=== PATIENT | male | born 2000 | race Two or more races ===

== ENCOUNTER 2022-02-25 22:17 | Emergency (ER) | payer OTHER ==
[~2022-02-25] VITALS: Ht 175.3 cm; Wt 52.2 kg
[2022-02-25] MEDS ORDERED: SYNTHROID50 MCG PO (23:13)
[2022-02-25] MEDS ORDERED: TYLENOL ARTHRI650 MG PO (23:13)
[2022-02-25] MEDS ORDERED: ZOLOFT25 MG PO (23:14)
[2022-02-26] MEDS ORDERED: TUSNEL LIQUID178 ML PO (03:02)
[2022-02-26] MEDS ORDERED: MAXITROL EYE DRO5 ML OP (03:02)
[2022-02-26] MEDS ORDERED: ZITHROMAX500 MG PO (03:02)
== END 2022-02-26 03:18 | disposition home or self-care (01) ==
LOC: EMR PED 22:17
DX: J06.9 Acute upper respiratory infection, unspecified (principal); H10.12 Acute atopic conjunctivitis, left eye; Z20.822 Contact with and (suspected) exposure to COVID-19

== ENCOUNTER 2022-09-13 11:35 | Emergency (ER) | payer OTHER ==
[~2022-09-13] VITALS: Ht 172.7 cm; Wt 52.2 kg
[~2022-09-13 11:35] MED LIST: MAXITROL EYE DRO5 ML OP; SYNTHROID50 MCG PO; TUSNEL LIQUID178 ML PO; TYLENOL ARTHRI650 MG PO; ZITHROMAX500 MG PO; ZOLOFT25 MG PO
== END 2022-09-13 14:35 | disposition home or self-care (01) ==
LOC: EMR PED 11:35
DX: N39.0 Urinary tract infection, site not specified (principal); Z91.013 Allergy to seafood